=== PATIENT | female | born 1975 | race Caucasian/White ===

== ENCOUNTER → 2017-03-10 | Outpatient (CLI) | payer BC ==
--- NOTE | 2017-03-10 09:56 | KCIC ---
Indication: Carpal tunnel syndrome bilaterally. Time of exam 9:27 AM The metacarpals and phalanges are unremarkable. No fractures are seen. The joint spaces are well-maintained. The carpi are unremarkable. IMPRESSION: No acute feature is detected. Electronically signed by: Delroy Pearl MD (03/10/2017 9:53 AM) [id number]
== END | disposition home or self-care (01) ==
LOC: KCIC 09:19
PROVIDERS: ATTEND Nurse Practitioner Family
DX: G56.03 Carpal tunnel syndrome, bilateral upper limbs (principal)
CPT/HCPCS: 73120